=== PATIENT | male | born 1955 | race Caucasian/White ===

== ENCOUNTER 2017-10-31 08:25 | Emergency (ER) | payer OTHER ==
--- NOTE | 2017-10-31 09:52 | RAD ---
HISTORY: cough/fever COMPARISON: 08/09/2017 TECHNIQUE: Chest PA and lateral FINDINGS: LUNGS: No active pulmonary disease. PLEURA: No significant pleural effusion identified. No pneumothorax apparent. CARDIOVASCULAR: Normal. OSSEOUS STRUCTURES: No significant abnormalities. VISUALIZED UPPER ABDOMEN: Normal. OTHER FINDINGS: None. IMPRESSION: No active disease.
--- NOTE | 2017-10-31 10:08 | C.PDOC ---
History Of Present Illness Jung Hansen is a 62 year old male presents to the emergency department complaining of subjective fever, cough and congestion onset for x3 days. Patient denies any sick contact. He denies any nausea, vomiting, diarrhea or other medical complaints. PMD: None provided. Time Seen by Provider: 10/31/17 09:04 Chief Complaint (Nursing): Flu-like Symptoms History Per: Patient History/Exam Limitations: no limitations Onset/Duration Of Symptoms: Days (x3) Current Symptoms Are (Timing): Still Present Location Of Pain: None Sick Contacts (Context): None Associated Symptoms: Fever (subjective), Cough, Nasal Congestion. denies: Nausea, Vomiting, Diarrhea Ear Symptoms: Bilateral: None Past Medical History Reviewed: Historical Data, Nursing Documentation, Vital Signs Vital Signs: Last Vital Signs Temp 98.1 F 10/31/17 10:23 Pulse 95 H 10/31/17 10:23 Resp 18 10/31/17 10:23 BP 125/83 10/31/17 10:23 Pulse Ox 97 10/31/17 15:33 - Medical History PMH: Kidney Stones, Chronic Kidney Disease Surgical History: No Surg Hx Family History: States: Unknown Family Hx - Social History Hx Tobacco Use: No Hx Alcohol Use: No Hx Substance Use: No - Immunization History Hx Tetanus Toxoid Vaccination: No Hx Influenza Vaccination: No Hx Pneumococcal Vaccination: No Review Of Systems Except As Marked, All Systems Reviewed And Found Negative. Constitutional: Positive for: Fever (subjective) ENT: Positive for: Nose Congestion Respiratory: Positive for: Cough Gastrointestinal: Negative for: Nausea, Vomiting, Diarrhea Physical Exam - Physical Exam Appears: Other (Ill) Skin: Normal Color, Warm, Dry Head: Atraumatic, Normacephalic Eye(s): bilateral: Normal Inspection, PERRL, EOMI Ear(s): Bilateral: Normal Nose: Normal Throat: Normal Neck: Normal ROM, Supple Cardiovascular: Rhythm Regular, No Murmur Respiratory: Normal Breath Sounds (clear b/l), No Wheezing Gastrointestinal/Abdominal: Normal Exam, Soft, No Tenderness Extremity: Normal ROM, No Pedal Edema, No Deformity, No Swelling Neurological/Psych: Oriented x3 (awake) ED Course And Treatment O2 Sat by Pulse Oximetry: 97 (RA) Pulse Ox Interpretation: Normal Progress Note: Initial Plan: --Chest two views (PA/LAT) [RAD]. --Influenza A B. --reevaluation. On re-evaluation patient feels better, not toxic looking, no meningeal signs, CXR was negative, Influenza negative. Patient was d/c home on symptomatic therapy, recommended f/u with PMD/Clinic within 2-3 days. Reassessment Condition: Improved Medical Decision Making Medical Decision Makin:25 Chest X-Ray FINDINGS: LUNGS: No active pulmonary disease. PLEURA: No significant pleural effusion identified. No pneumothorax apparent. CARDIOVASCULAR: Normal. OSSEOUS STRUCTURES: No significant abnormalities. VISUALIZED UPPER ABDOMEN: Normal. OTHER FINDINGS: None. IMPRESSION: No active disease. Disposition - Disposition Disposition: HOME/ ROUTINE Disposition Time: 10:06 Condition: STABLE Additional Instructions: Follow up with PMD/Clinic within 1-2 days. Return to ED if feel worse. Prescriptions: Fluticasone Propionate [Flonase] 1 spr NS BID #1 spr Ibuprofen [Motrin Tab] 600 mg PO Q8 #30 tab Benzonatate [Tessalon Perles] 2 tab PO TID #60 sgl Instructions: Viral Syndrome (ED) Forms: [employer] (Georgian) Print Language: SCOTTISH - Clinical Impression Clinical Impression: Viral syndrome - Scribe Statement Jung Price All medical record entries made by the Scribe were at my direction and personally dictated by me. I have reviewed the chart and agree that the record accurately reflects my personal performance of the history, physical exam, medical decision making, and the department course for this patient. I have also personally directed, reviewed, and agree with the discharge instructions and disposition.
[2017-10-31 10:24] VITALS: BP 125/83; PULSE 95; RESP 18; TEMP 98.1
[2017-10-31 15:16] VITALS: O2SAT 97
== END 2017-10-31 10:23 | disposition home or self-care (01) ==
LOC: C.ER 08:25
DX: B34.9 Viral infection, unspecified (principal)